=== PATIENT | female | born 1960 | race Caucasian/White ===

== ENCOUNTER 2018-04-26 06:51 | Day surgery (SDC) | payer OTHER ==
[~2018-04-26 06:51] MED LIST: LACTATED RINGER'S 1,000 ML IV*
[2018-04-26] MEDS: ACETAMINOPHEN 500 MG TAB PO (08:03)
[2018-04-26] MEDS ORDERED: ROCURONIUM 50 MG INJ (08:47)
[2018-04-26] MEDS ORDERED: CEFAZOLIN 1 GM INJ ×2 (08:47→09:13)
[2018-04-26] MEDS ORDERED: FENTAnyl 50 MCG/ML VIAL (08:47)
[2018-04-26] MEDS ORDERED: MIDAZOLAM 1 MG/ML 2 ML INJ (08:47)
[2018-04-26] MEDS ORDERED: LIDOCAINE 2% (SDV) 5 ML INJ (08:47)
[2018-04-26] MEDS ORDERED: ONDANSETRON 4 MG INJ (08:47)
[2018-04-26] MEDS ORDERED: FAMOTIDINE 20 MG INJ (08:47)
[2018-04-26] MEDS ORDERED: PROPOFOL 40 ML (08:47)
[2018-04-26] MEDS ORDERED: SUCCINYLCHOLINE CHLORIDE 100 MG/5 ML SYG IV (08:47)
[2018-04-26] MEDS ORDERED: morphine (1 MG/ML) 10ML SYRINGE IV ×2 (09:00)
[2018-04-26] MEDS ORDERED: LABETALOL HCL 20MG INJ IV (09:00)
[2018-04-26] MEDS ORDERED: DIPHENHYDRAMINE 50 MG INJ IV (09:00)
[2018-04-26] MEDS ORDERED: OXYCODONE/ACETAMINOPHEN (5/325) TAB PO ×2 (09:00)
[2018-04-26] MEDS ORDERED: FENTAnyl 50 MCG/ML VIAL IV ×2 (09:00)
[2018-04-26] MEDS ORDERED: MEPERIDINE 25 MG INJ IV (09:00)
[2018-04-26] MEDS ORDERED: ALBUTEROL 0.083% (NEB) 2.5 MG/3 ML AMP HHN (09:00)
[2018-04-26] MEDS ORDERED: METOCLOPRAMIDE 10 MG INJ (09:13)
[2018-04-26] MEDS ORDERED: KETOROLAC 30 MG INJ (09:52)
[2018-04-26] MEDS: ONDANSETRON 4 MG INJ IV (10:14)
[2018-04-26] MEDS: HYDROmorphONE 1 MG/5 ML IV SYRINGE IV ×3 (10:14→10:31)
== END 2018-04-26 11:40 | disposition home or self-care (01) ==
LOC: SDS 06:51
DX: C54.1 Malignant neoplasm of endometrium (principal); I10 Essential (primary) hypertension
CPT/HCPCS: 58558; 88305